=== PATIENT | female | born 1955 | race Caucasian/White ===

== ENCOUNTER → 2023-05-30 15:16 | Outpatient (CLI) | payer MEDICARE, SELFPAY ==
--- NOTE | 2023-05-30 15:17 | DI.US.S_ITS ---
PROCEDURE: US PELVIC COMPLETE INDICATIONS: POSTMENOPAUSAL BLEEDING TECHNIQUE: Real-time scanning was performed of the pelvic organs, with image documentation. Additional endovaginal scanning was necessary due to incomplete visualization of the adnexal and endometrial structures by transabdominal scanning. COMPARISON: None. FINDINGS: Uterus: Uterus is anteverted and normal in size at 9.6 x 8.1 x 7.5 cm. The myometrium is heterogeneous. The endometrium measures 3 mm combined thickness. Intramural fibroid along the anterior, mid uterine segment measuring 5.2 x 4.9 x 5.1 cm. Trace fluid within the cervix. Ovaries: Ovaries not visualized due to presumed atrophy and overlying bowel gas. Other: No pathologic free abdominal or pelvic fluid. IMPRESSION: Endometrial stripe measures 3 mm, within normal limits. Postmenopausal bleeding may be explained by atrophy. Large intramural fibroid measuring 5.2 cm. We strive to produce accurate, complete, and clear reports of imaging services. To assist us in improving patient care, this report was composed using standard report templates and voice recognition software. Therefore, it may contain abnormal punctuation, insertions and/or omissions. Occasional wrong-word or sound-alike substitutions may occur. Though we review the report and make efforts to correct it, we do recommend that the report be read carefully in proper context to recognize any text inaccuracies. Dictated by: Christoph Robins M.D. on 05/30/2023 at 16:18 Approved by: Christoph Robins M.D. on 05/30/2023 at 16:20
== END ==
PROVIDERS: Family Provider Family Medicine; PCP Internal Medicine; Referring Provider Obstetrics & Gynecology; Visit Provider Obstetrics & Gynecology
DX: N95.0 Postmenopausal bleeding (principal); D25.1 Intramural leiomyoma of uterus
CPT/HCPCS: 76830; 76856

== ENCOUNTER → 2024-05-30 13:52 | Outpatient (CLI) | payer MEDICARE, SELFPAY ==
--- NOTE | 2024-05-30 13:53 | DI.US.S_ITS ---
PROCEDURE: US PELVIC COMPLETE INDICATIONS: pelvic pain/left ovary/postmenopausal bleeding TECHNIQUE: Real-time scanning was performed of the pelvic organs, with image documentation. Additional endovaginal scanning was necessary due to incomplete visualization of the adnexal and endometrial structures by transabdominal scanning. COMPARISON: [facility], US, US PELVIC COMPLETE, 05/30/2023, 15:31. FINDINGS: Uterus: Uterus is anteverted and mildly enlarged at 10.3 x 8.3 x 6.5 cm. The myometrium is homogeneous. The endometrium measures 7 mm combined thickness. Uterine fibroids are seen, with the most significant as follows: -Midline anterior intramural fibroid measures 5.7 x 5.9 x 5.9 cm (previously 5.2 x 4.9 x 5.1 cm). -A fibroid with a submucosal component measures 1.2 x 1.2 x 0.9 cm, not previously seen. -A left anterior fibroid measures 3.3 x 2.6 x 2.6 cm, not previously seen. Ovaries: The right ovary measures 3.0 x 1.8 x 1.6 cm, with a calculated ovarian volume of 4.5 cc. The left ovary measures 1.9 x 2.7 x 2.0 cm, with a calculated ovarian volume of 5.4 cc. The ovaries have a normal sonographic appearance. Less than 12 follicles can be seen in each ovary. No adnexal masses are seen. Other: No pathologic free abdominal or pelvic fluid. IMPRESSION: 1. Multiple uterine fibroids, largest of which has increased in size measuring up to 5.9 cm. At least 1 fibroid has a submucosal component. 2. Endometrium measures 7 mm in thickness, which may be related to the presence of fibroids but possible endometrial biopsy should be considered in the setting of postmenopausal bleeding. Approved by: Sanjay Marrufo M.D. on 05/30/2024 at 18:12
== END ==
PROVIDERS: Family Provider Family Medicine; PCP Internal Medicine; Referring Provider Obstetrics & Gynecology; Visit Provider Obstetrics & Gynecology
DX: R10.2 Pelvic and perineal pain (principal); D25.1 Intramural leiomyoma of uterus; D25.0 Submucous leiomyoma of uterus
CPT/HCPCS: 76830; 76856